=== PATIENT | male | born 1990 | race Two or more races ===

== ENCOUNTER 2018-09-28 09:02 | Emergency (ER) | payer MEDICAID ==
[~2018-09-28] VITALS: Ht 172.7 cm; Wt 76.2 kg
[2018-09-28 09:28] VITALS: BP 129/83
--- NOTE | 2018-09-28 09:31 | Emergency Room Report ---
History of Present Illness General Chief Complaint: Pain Source: Patient Present Illness HPI 27-year-old male complains of very small amount rectal bleeding once this morning, while he was straining to have a bowel movement, he reports anal pain as well since last night, denies any redness, denies large volume rectal bleeding, reports no melanotic stools, reports no constipation or diarrhea, no abdominal pain, no fevers. He does report that he had anal intercourse about a month ago. Urinary complaints, dysuria, urethral discharge, skin lesions, any other problems. He reports the pain in his anal area is worse when he sits down , reports he's contemplating with his PMD, Dr. Cannon, tomorrow. Allergies: Coded Allergies: No Known Allergies (Unverified , 09/28/18) Patient History Past Medical History: see triage record Reviewed Nursing Documentation: PMH: Agreed; PSxH: Agreed Nursing Documentation-PM Past Medical History: No Stated History Review of Systems All Other Systems: negative except mentioned in HPI Physical Exam Vital Signs Date Time Temp Pulse Resp B/P (MAP) Pulse Ox O2 Delivery O2 Flow Rate FiO2 09/28/18 09:06 97.9 78 17 129/83 99 Room Air Sp02 EP Interpretation: reviewed, normal General Appearance: no apparent distress, alert, non-toxic Head: normocephalic Eyes: bilateral eye normal inspection, bilateral eye PERRL, bilateral eye EOMI ENT: normal ENT inspection, hearing grossly normal, normal pharynx, no angioedema, normal voice, moist mucus membranes Neck: normal inspection, full range of motion, supple, supple/symm/no masses Respiratory: chest non-tender, lungs clear, normal breath sounds, chest symmetrical, palpation of chest normal Cardiovascular #1: normal peripheral pulses, regular rate, rhythm Gastrointestinal: normal inspection, non tender, soft, no mass, no guarding, no rebound Rectal: normal exam, normal rectal tone, hemorrhoids, other - brown, nonbloody stool, no anal fissures, no internal or external fluctuance or masses, no erythema or warmth externally or internally along anus Genitourinary: normal inspection, no CVA tenderness Musculoskeletal: back normal, gait/station normal, normal range of motion, non- tender, no calf tenderness Neurologic: alert, responsive, police sergeant III-XII nml as tested, motor strength/tone normal, sensory intact, speech normal Psychiatric: judgement/insight normal, memory normal, mood/affect normal Skin: normal color, no rash, warm/dry, normal turgor Lymphatic: no adenopathy Medical Decision Making Diagnostic Impression: Primary Impression: Proctalgia fugax ER Course Patient with rectal bleeding and proctalgia, bleeding seems to be extremely minimal, likely from an internal hemorrhoid, he has no signs of infection on clinical examination, however he is at risk for renal abscesses and proctitis due to sexual activity. He has follow-up with his primary care doctor tomorrow , I will recommend he follow up with that doctor and get referral to a rectal surgeon for an anoscopy, and further evaluation. We'll write him prescription for hemorrhoid cream, and ibuprofen, as well as a work note. Last Vital Signs Date Time Temp Pulse Resp B/P (MAP) Pulse Ox O2 Delivery O2 Flow Rate FiO2 09/28/18 09:06 97.9 78 17 129/83 99 Room Air Disposition: HOME, SELF-CARE Condition: Stable Scripts No Active Prescriptions or Reported Meds DIMA CORONA M.D Sep 28, 2018 09:31
[2018-09-28] MEDS ORDERED: IBUPROFEN600 MG ORAL (09:34)
[2018-09-28] MEDS ORDERED: ANUSOL-HC25 MG RECTAL (09:35)
[2018-09-28] MEDS ORDERED: Ketorolac 60mg Inj IM ONE (09:45)
[2018-09-28] MEDS ORDERED: Lidocaine 1% MPF 10mg/ml 5ml INJ ONE (09:45)
[2018-09-28] MEDS ORDERED: Azithromycin 250mg tab ORAL ONE (09:45)
[2018-09-28 10:34] VITALS: BP 129/83
== END 2018-09-28 10:35 | disposition home or self-care (01) ==
LOC: EMR 09:28
DX: K59.4 Anal spasm (principal)
CPT/HCPCS: 87491; 96372; 96374; 99284; J0696; Q0144